=== PATIENT | male | born 1945 | race Caucasian/White ===

== ENCOUNTER 2016-11-15 10:02 | Day surgery (SDC) | payer MEDICARE, OTHER ==
[~2016-11-15] VITALS: Ht 177.8 cm; Wt 90.3 kg
[~2016-11-15 10:02] MED LIST: CORDARONE200 MG/TAB PO; COREG12.5 MG PO; DULERA1 AR1 IH; GLUCOPHAGE500 MG/TAB PO; GLUCOTROL XL5 MG/TAB PO; NORCO 325 MG-51 TAB PO; PEPCID 20MG TAB20 MG PO; PRECOSE100 M1 PO; ZOFRAN ODT4 MG PO
[2016-11-15 11:43] VITALS: BP 156/84; PULSE 53; TEMP 97.6
[2016-11-15] MEDS ORDERED: CORDARONE200 MG/TAB PO (11:55)
[2016-11-15] MEDS ORDERED: MOTRIN 200200 MG/TAB PO (11:57)
[2016-11-15] MEDS ORDERED: ZOFRAN ODT4 MG PO (13:56)
[2016-11-15] MEDS ORDERED: NORCO 325 MG-51 TAB PO (13:56)
[2016-11-15] MEDS ORDERED: COLACE 100100 MG/CAP PO (13:56)
[2016-11-15 14:35] VITALS: BP 154/87; PULSE 66; TEMP 98.1
[2016-11-15 14:50] VITALS: BP 129/75; PULSE 67
[2016-11-15 15:05] VITALS: BP 155/74; PULSE 65
[2016-11-15 15:20] VITALS: BP 146/73; PULSE 70
[2016-11-15 15:50] VITALS: BP 142/76; PULSE 70
== END 2016-11-15 16:28 | disposition home or self-care (01) ==
LOC: SDCO 10:02
DX: G89.18 Other acute postprocedural pain (principal); R10.31 Right lower quadrant pain; E11.9 Type 2 diabetes mellitus without complications; E78.00 Pure hypercholesterolemia, unspecified; K21.9 Gastro-esophageal reflux disease without esophagitis; Z86.010 Personal history of colon polyps; Z87.01 Personal history of pneumonia (recurrent); J45.909 Unspecified asthma, uncomplicated; I48.0 Paroxysmal atrial fibrillation; I25.10 Atherosclerotic heart disease of native coronary artery without angina pectoris
CPT/HCPCS: J0330; J0690; J1100; J2270; J2405; J2704; J3010; J7030